=== PATIENT | female | born 1980 | race Caucasian/White ===

== ENCOUNTER 2021-05-03 16:45 | Inpatient (IN) | payer BC ==
[~2021-05-03] VITALS: Ht 165.1 cm; Wt 114.7 kg
[2021-05-03 18:14] LABS: BASO # 0.1 x10^3/uL (0.0-0.2); BASO % 1 % (0-3); EOS # 0.2 x10^3/uL (0.0-0.7); EOS % 3 % (0-3); HEMATOCRIT 40.2 % (36.0-47.0); HEMOGLOBIN 13.1 g/dL (12.0-15.5); LYMPH # 2.1 x10^3/uL (1.0-4.8); LYMPH % 23 % (24-48); MEAN CORPUSCULAR HEMOGLOBIN 24 pg (25-35); MEAN CORPUSCULAR HGB CONC 33 g/dL (31-37); MEAN CORPUSCULAR VOLUME 73 fL (79-100); MONO # 0.3 x10^3/uL (0.0-1.1); MONO % 4 % (0-9); NEUT # 6.3 x10^3/uL (1.8-7.7); NEUT % 70 % (31-73); PLATELET COUNT 255 x10^3/uL (140-400); RED BLOOD COUNT 5.48 x10^6/uL (3.50-5.40); RED CELL DISTRIBUTION WIDTH 14.7 % (11.5-14.5)
[2021-05-03 18:25] LABS: BILIRUBIN,URINE NEGATIVE (NEG); CLARITY,URINE CLEAR; COLOR,URINE YELLOW; NITRITE,URINE NEGATIVE (NEG); PROTEIN,URINE NEGATIVE (NEG-TRACE); UROBILINOGEN,URINE 0.2 mg/dL (0.2 mg/dL)
[2021-05-03 18:27] LABS: BACTERIA,URINE FEW /HPF (0-FEW); RBC,URINE 0 /HPF (0-2); WBC,URINE 0 /HPF (0-4)
[2021-05-03 18:29] LABS: ACETAMIN < 2 mcg/ml (10-30); CALCIUM 8.8 mg/dL (8.5-10.1); CREATININE 0.7 mg/dL (0.6-1.0); ETHANOL < 10 mg/dL (0-10); GFR 92.7; POTASSIUM 4.2 mmol/L (3.5-5.1); SALIC 0.6 mg/dL (2.8-20.0)
[2021-05-03 18:31] LABS: AMPHETAMINE/METHAMPHETAMINE NEG (NEG); BARBITURATES NEG (NEG); BENZODIAZEPINES NEG (NEG); CANNABINOIDS NEG (NEG); COCAINE NEG (NEG); METHADONE NEG (NEG); OPIATES NEG (NEG); PHENCYCLIDINE NEG (NEG)
[2021-05-03 18:35] LABS: ALBUMIN 3.4 g/dL (3.4-5.0); ALBUMIN/GLOBULIN RATIO 0.7 (1.0-1.7); TOTAL BILIRUBIN 0.3 mg/dL (0.2-1.0); TOTAL PROTEIN 8.4 g/dL (6.4-8.2)
--- NOTE | 2021-05-03 18:49 | EKG ---
[facility] [address] [place] [address] Test Date: 2021-05-03 Test Time: 17:35:40 Pat Name: TASH MAYES Department: Room: Gender: F Baker Chef: : 1980 Requested By: NU LINARES Order Number: [id number] Reading MD: Hemanth Huerta Measurements Intervals [place] Rate: 95 P: 38 GA: 152 QRS: 11 QRSD: 86 T: 11 QT: 336 QTc: 425 Interpretive Statements SINUS RHYTHM NORMAL ECG RI6.02 No previous ECG available for comparison Electronically Signed On 05-05-2021 8:32:47 CABLE RESPOOLER by Hemanth Huerta
[2021-05-03 19:14] LABS: VAL ACID 34 mcg/mL (50-100)
[2021-05-03] MEDS ORDERED: ACETAMINOPHEN 325 MG TABLET. PO PRN (20:45)
[2021-05-03] MEDS ORDERED: ONDANSETRON PF 4 MG/2 ML VIAL. IVP PRN (20:45)
--- NOTE | 2021-05-03 20:56 | PHYS DOC ---
Past Medical History Past Medical History: Depression, Diabetes-Type II (borderline), Schizophrenia Additional Past Medical Histor: BORDERLINE DIABETES "SMALL SCHIZOPHRENIA", PTSD, MANIC DEPRESSIVE (ALFIE MORELAND Adrian HOME THERAPY CLINICIAN) Past Surgical History: Other Additional Past Surgical Histo: PARTIAL HYSTERECTOMY (ALFIE MORELAND HOME THERAPY CLINICIAN) Smoking Status: Current Every Day Smoker Additional Information: VAPES Alcohol Use: Rarely (ALFIE MORELAND HOME THERAPY CLINICIAN) General Adult EDM: Chief Complaint: SUICDAL IDEATION HPI: HPI: Patient is a 41 year old female with history of manic depressive behavior, borderline diabetes, schizophrenia, PTSD, who presents the ED today to be evaluated for suicidal attempt. Patient states she recently got and has a new boyfriends. She states yesterday she went to her parent's house in [facility], she got into a verbal altercation with the mother, she decided to take her two children from her parents to [place]. She states was driving back to [place] when she realized they had forgotten some stuff. She went back to the parent's house, when she got to their her daughter jumped out of the vehicle, her son also came out of the vehicle and went into the grandparents house and they both refused go with their mother to [place]. Patient states she drove to [place], made herself 2 alcoholic drinks around 5:30 PM. She states later last night she took half a handful of 5 mg of Lexapro as well as 4 tablets of 250 mg of Depakote. She states her intention was to ki ll herself. She states she slept until 230am when woke up and did FaceTime with her boyfriend who was at work then slept until 5:30 am when the boyfriend came back. She states she has continued to have suicidal thoughts. She states she does not have a plan. She is requesting help. Patient reports previous history of suicidal ideations. Patient has no other symptoms. (ALFIE MORELAND HOME THERAPY CLINICIAN) Review of Systems: Review of Systems: Constitutional: Denies fever or chills. [] Eyes: Denies change in visual acuity. [] HENT: Denies nasal congestion or sore throat. [] Respiratory: Denies cough or shortness of breath. [] Cardiovascular: Denies chest pain or edema. [] GI: Denies abdominal pain, nausea, vomiting, bloody stools or diarrhea. [] : Denies dysuria. [] Musculoskeletal: Denies back pain or joint pain. [] Integument: Denies rash. [] Neurologic: Denies headache, focal weakness or sensory changes. [] Psychiatric: Reports suicide attempt (ALFIE MORELAND M HOME THERAPY CLINICIAN) Heart Score: C/O Chest Pain: N/A Risk Factors: Risk Factors: DM, Current or recent (<one month) smoker, HTN, HLP, family history of CAD, obesity. Risk Scores: Score 0 - 3: 2.5% MACE over next 6 weeks - Discharge Home Score 4 - 6: 20.3% MACE over next 6 weeks - Admit for Clinical Observation Score 7 - 10: 72.7% MACE over next 6 weeks - Early Invasive Strategies (ALFIE MORELAND M HOME THERAPY CLINICIAN) Allergies: Allergies: Allergies Coded Allergies Type Severity Reaction Last Updated Verified No Known Drug Allergies 05/03/21 No (ALFIE MORELAND M HOME THERAPY CLINICIAN) Physical Exam: PE: Constitutional: Well developed, well nourished, no acute distress, non-toxic appearance. [] HENT: Normocephalic, atraumatic, bilateral external ears normal, oropharynx moist, no oral exudates, nose normal. [] Eyes: PERRLA, EOMI, conjunctiva normal, no discharge. [] Neck: Normal range of motion, no tenderness, supple, no stridor. [] Cardiovascular: Tachycardic Lungs & Thorax: Bilateral breath sounds clear to auscultation [] Abdomen: Bowel sounds normal, soft, no tenderness, no masses, no pulsatile masses. [] Skin: Warm, dry, no erythema, no rash. [] Back: No tenderness, no CVA tenderness. [] Extremities: No tenderness, no cyanosis, no clubbing, ROM intact, no edema. [] Neurologic: Alert and oriented X 3, normal motor function, normal sensory function, no focal deficits noted. [] Psychologic: Flat affect, depressed mood (ALFIE MORELAND M HOME THERAPY CLINICIAN) Current Patient Data: Labs: Laboratory Tests Test 05/03/21 17:58 White Blood Count 9.0 x10^3/uL (4.0-11.0) Red Blood Count 5.48 x10^6/uL (3.50-5.40) H Hemoglobin 13.1 g/dL (12.0-15.5) Hematocrit 40.2 % (36.0-47.0) Mean Corpuscular Volume 73 fL (79-100) L Mean Corpuscular Hemoglobin 24 pg (25-35) L Mean Corpuscular Hemoglobin Concent 33 g/dL (31-37) Red Cell Distribution Width 14.7 % (11.5-14.5) H Platelet Count 255 x10^3/uL (140-400) Neutrophils (%) (Auto) 70 % (31-73) Lymphocytes (%) (Auto) 23 % (24-48) L Monocytes (%) (Auto) 4 % (0-9) Eosinophils (%) (Auto) 3 % (0-3) Basophils (%) (Auto) 1 % (0-3) Neutrophils # (Auto) 6.3 x10^3/uL (1.8-7.7) Lymphocytes # (Auto) 2.1 x10^3/uL (1.0-4.8) Monocytes # (Auto) 0.3 x10^3/uL (0.0-1.1) Eosinophils # (Auto) 0.2 x10^3/uL (0.0-0.7) Basophils # (Auto) 0.1 x10^3/uL (0.0-0.2) Urine Collection Type Unknown Urine Color Yellow Urine Clarity Clear Urine pH 7.0 (<5.0-8.0) Urine Specific [place] 1.020 (1.000-1.030) Urine Protein Negative mg/dL (NEG-TRACE) Urine Glucose (UA) Negative mg/dL (NEG) Urine Ketones (Stick) Negative mg/dL (NEG) Urine Blood Negative (NEG) Urine Nitrite Negative (NEG) Urine Bilirubin Negative (NEG) Urine Urobilinogen Dipstick 0.2 mg/dL (0.2 mg/dL) Urine Leukocyte Esterase Negative (NEG) Urine RBC 0 /HPF (0-2) Urine WBC 0 /HPF (0-4) Urine Squamous Epithelial Cells Occ /LPF Urine Bacteria Few /HPF (0-FEW) Urine Mucus Slight /LPF Sodium Level 136 mmol/L (136-145) Potassium Level 4.2 mmol/L (3.5-5.1) Chloride Level 100 mmol/L (98-107) Carbon Dioxide Level 27 mmol/L (21-32) Anion Gap 9 (6-14) Blood Urea Nitrogen 5 mg/dL (7-20) L Creatinine 0.7 mg/dL (0.6-1.0) Estimated GFR (Cockcroft-Gault) 92.7 BUN/Creatinine Ratio 7 (6-20) Glucose Level 177 mg/dL (70-99) H Calcium Level 8.8 mg/dL (8.5-10.1) Magnesium Level 2.0 mg/dL (1.8-2.4) Total Bilirubin 0.3 mg/dL (0.2-1.0) Aspartate Amino Transferase (AST) 23 U/L (15-37) Alanine Aminotransferase (ALT) 43 U/L (14-59) Alkaline Phosphatase 92 U/L (46-116) Total Protein 8.4 g/dL (6.4-8.2) H Albumin 3.4 g/dL (3.4-5.0) Albumin/Globulin Ratio 0.7 (1.0-1.7) L Salicylates Level 0.6 mg/dL (2.8-20.0) L Salicylate Last Dose Date Salicylate Last Dose Time Urine Opiates Screen Neg (NEG) Urine Methadone Screen Neg (NEG) Acetaminophen Level < 2 mcg/ml (10-30) L Acetaminophen Last Dose Date Acetaminophen Last Dose Time Urine Barbiturates Neg (NEG) Valproic Acid Level 34 mcg/mL (50-100) L Valproic Acid Last Dose Date 05/02/21 Valproic Acid Last Dose Time 2100 Urine Phencyclidine Screen Neg (NEG) Urine Amphetamine/Methamphetamine Neg (NEG) Urine Benzodiazepines Screen Neg (NEG) Urine Cocaine Screen Neg (NEG) Urine Cannabinoids Screen Neg (NEG) Ethyl Alcohol Level < 10 mg/dL (0-10) Urine Ethyl Alcohol Neg (NEG) Laboratory Tests 05/03/21 17:58 Laboratory Tests 05/03/21 17:58 Vital Signs: Vital Signs Date Time Temp Pulse Resp B/P (MAP) Pulse Ox O2 Delivery O2 Flow Rate FiO2 05/03/21 20:10 85 22 149/84 (105) 93 05/03/21 18:10 Room Air 05/03/21 16:50 98.3 98.3 (ALFIE MORELAND APRN) EKG: EK interpreted by Dr. Coyne sinus rhythm heart rate 95, QRS 86, QT 336, QTc 425. No STEMI [] (ALFIE MORELAND APRN) Radiology/Procedures: Radiology/Procedures: [] (ALFIE MORELAND APRN) Course & Med Decision Making: Course & Med Decision Making Pertinent Labs and Imaging studies reviewed. (See chart for details) This is a 41-year-old female patient presented to the ED today to be evaluated for suicide attempt, she took half a handful of 5 mg Lexapro last night as well as 4 tablets of Depakote 250 mg. She also had 2 alcoholic drinks. CBC, CMP, UDS negative for any acute findings. Depakote level 34. EKG is negative. Spoke with poison control. They requested patient to be monitored for 11 hours considering we do not have an exact time she took the pills. Patient is on1:[address] Schafer who accepted patient for admission. (ALFIE MORELAND APRN) Course & Med Decision Making Patients Care and treatment plan provided by ER Nurse Practitioner. I was available for consult. Patient's chart reviewed. (JUDAH VIRK DO) Dragon Disclaimer: Dragon Disclaimer: This electronic medical record was generated, in whole or in part, using a voice recognition dictation system. (ALFIE MORELAND APRN) Departure Departure Impression: Primary Impression: Suicidal ideation Additional Impression: Overdose Qualified Codes: T50.902A - Poisoning by unspecified drugs, medicaments and biological substances, intentional self-harm, initial encounter Disposition: ADMITTED INPATIENT Condition: STABLE Referrals: NO PCP (PCP) ALFIE MORELAND APRN May 03, 2021 20:56 JUDAH VIRK DO May 04, 2021 03:42
[2021-05-03 21:00] VITALS: BP 148/96
[2021-05-03] MEDS ORDERED: ONDANSETRON ODT 4 MG TAB.RAPDIS. PO PRN (22:30)
[2021-05-03 22:31] VITALS: BP 126/63
[2021-05-03] MEDS ORDERED: ESOM20CA PO (23:40)
[2021-05-03] MEDS ORDERED: CALC650T7 PO (23:40)
[2021-05-03] MEDS ORDERED: CRAN1CAP12 PO (23:40)
[2021-05-03] MEDS ORDERED: FEXO1TAB31 PO (23:40)
[2021-05-03] MEDS ORDERED: DIVA500T17 PO (23:40)
[2021-05-03] MEDS ORDERED: ESCITALOPRAM OX10 MG PO (23:40)
[2021-05-03] MEDS ORDERED: MULT-154 PO (23:40)
[2021-05-04 02:11] VITALS: BP 134/88
--- NOTE | 2021-05-04 05:27 | EKG ---
[facility] [address] [place] [address] Test Date: 2021-05-03 Test Time: 20:50:56 Pat Name: TASH MAYES Department: Room: [facility] Gender: F Clinical Nursing Coordinator: : 1980 Requested By: ALFIE MORELAND Order Number: [id number] Reading MD: Hemanth Huerta Measurements Intervals [place] Rate: 93 P: 17 MN: 160 QRS: 0 QRSD: 86 T: 12 QT: 354 QTc: 443 Interpretive Statements SINUS RHYTHM LEFTWARD AXIS Electronically Signed On 05-05-2021 8:31:52 BIODIESEL ENGINEERING MANAGER by Hemanth Huerta
[2021-05-04 06:43] LABS: BASO % 0 % (0-3); EOS # 0.2 x10^3/uL (0.0-0.7); EOS % 3 % (0-3); HEMATOCRIT 38.3 % (36.0-47.0); HEMOGLOBIN 12.1 g/dL (12.0-15.5); LYMPH # 4.1 x10^3/uL (1.0-4.8); LYMPH % 44 % (24-48); MEAN CORPUSCULAR HEMOGLOBIN 24 pg (25-35); MEAN CORPUSCULAR HGB CONC 32 g/dL (31-37); MEAN CORPUSCULAR VOLUME 74 fL (79-100); MONO # 0.6 x10^3/uL (0.0-1.1); MONO % 6 % (0-9); NEUT # 4.4 x10^3/uL (1.8-7.7); NEUT % 47 % (31-73); PLATELET COUNT 237 x10^3/uL (140-400); RED BLOOD COUNT 5.16 x10^6/uL (3.50-5.40); WHITE BLOOD COUNT 9.4 x10^3/uL (4.0-11.0)
[2021-05-04 06:56] LABS: ALBUMIN 3.2 g/dL (3.4-5.0); ALBUMIN/GLOBULIN RATIO 0.7 (1.0-1.7); CALCIUM 8.8 mg/dL (8.5-10.1); CREATININE 0.6 mg/dL (0.6-1.0); GFR 110.7; POTASSIUM 3.8 mmol/L (3.5-5.1); TOTAL BILIRUBIN 0.3 mg/dL (0.2-1.0); TOTAL PROTEIN 7.9 g/dL (6.4-8.2)
[2021-05-04 07:28] VITALS: BP 168/101
[2021-05-04] MEDS ORDERED: NICOTINE 21MG PATCH. TD PRN (08:30)
[2021-05-04] MEDS: PANTOPRAZOLE 40 MG TABLET.DR. PO SCH (08:41)
[2021-05-04] MEDS ORDERED: CALCIUM CARBONATE 500 MG TAB.CHEW PO PRN (08:45)
[2021-05-04 11:00] VITALS: BP 151/82
--- NOTE | 2021-05-04 15:23 | NUR ---
SS following for discharge planning. SS reviewed pt chart and discussed with pt RN. Pt is from home and is currently on room air. Pt admitted for suicidal ideation and overdose. Request for PAT consult received. Referral for PAT team made for assessment and recommendations. SS will continue to follow for discharge planning.
[2021-05-04 15:30] VITALS: BP 156/96
--- NOTE | 2021-05-04 16:16 | PDOC1 ---
History and Physical Date of Admission Date of Admission DATE: 05/04/21 TIME: 16:10 Source Source: Chart review, Patient History of Present Illness History of Present Illness Tiffany is a 41 year old female admti after a suicide attept last night. She took a couple alcohol drinks, then most of her lexapro and some Depakote tabs, maybe 4 or 6 depakote only, and level was not elevated in the ER She has a history of manic depressive behavior, borderline diabetes, schizophrenia, PTSD, and has mult lift changes recently, Recently and has a new partner. Has moved to from [place], was in a fight with her mom yesterday in [place], and her kids refused to stay with her and she says she titi spiraled down from there. She states her intention was to kill herself when she took her pills,but she has no current plan and feels better and her anxiety is better. . She is requesting help, and does report hearing some voices in her head. Past Medical History Cardiovascular: HTN Psych: Anxiety, Addictions, Schizophrenia (mild) Past Surgical History Past Surgical History: No pertinent history Family History Family History: Family History Unknown, Adopted Social History Smoke: 1 pack per day ALCOHOL: social Drugs: None Current Medications Current Medications Current Medications Ondansetron HCl (Zofran) 4 mg PRN Q8HRS PRN IVP NAUSEA/VOMITING; Start 05/03/21 at 20:45; Stop 05/04/21 at 20:44; Status Cancel Acetaminophen (Tylenol) 650 mg PRN Q4HRS PRN PO FEVER > 100.3'F Last administered on 05/04/21at 08:39; Start 05/03/21 at 20:45; Stop 05/04/21 at 20:44 Ondansetron HCl (Zofran Odt) 4 mg PRN Q8HRS PRN PO NAUSEA/VOMITING; Start 05/03/21 at 22:30 Nicotine (Nicoderm Cq 21mg) 1 patch PRN DAILY PRN TD SMOKING CESSATION Last administered on 05/04/21at 08:55; Start 05/04/21 at 08:30 Lorazepam (Ativan) 1 mg PRN Q6HRS PRN PO ANXIETY / AGITATION; Start 05/04/21 at 08:30 Calcium Carbonate/ Glycine (Tums) 750 mg PRN AFTMEALHC PRN PO HEARTBURN / GAS; Start 05/04/21 at 08:45 Pantoprazole Sodium (Protonix) 40 mg DAILYAC PO Last administered on 05/04/21at 08:41; Start 05/04/21 at 10:30 Active Scripts Active Reported Calcium Carbonate 650 Mg Tablet 750 Mg PO PRN QID PRN Nexium Capsule (Esomeprazole Magnesium) 20 Mg Capsule.dr 1 Cap PO DAILY Debo-D 24 Hour Tablet (Fexofenadine/Pseudoephedrine) 1 Each Tab.er.24h 1 Tab PO DAILY 30 Days Azo Cranberry Softgel (Cranberry Extract/Vit C) 1 Each Capsule 1 Cap PO DAILY 30 Days One-A-Day Essential (Multivitamin) 1 Each Tablet 1 Tab PO DAILY 30 Days Divalproex Sodium Er (Divalproex Sodium) 500 Mg Tab.er.24h 1 Tab PO QHS Escitalopram Oxalate 10 Mg Tablet 15 Mg PO DAILY PRN Allergies Allergies: Coded Allergies: No Known Drug Allergies (Unverified , 05/03/21) ROS General: No: Chills, Night Sweats, Fatigue, Malaise, Appetite, Other PSYCHOLOGICAL ROS: YES: Anxiety, Hostility, Irritablity, Obsessive thoughts, Sleep disturbances, Suicidal ideation; No: Behavioral Disorder, Concentration difficultie, Decreased libido, Depression, Disorientation, Hallucinations, Memory difficulties, Mood Swings, Physical abuse, Sexual abuse, Other Eyes: No Blurry vision, No Decreased vision, No Double vision, No Dry eyes, No Excessive tearing, No Eye Pain, No Itchy Eyes, No Loss of vision, No Photophobia, No Scotomata, No Uses contacts, No Uses glasses, No Other Respiratory: No: Cough, Hemoptysis, Orthopnea, Pleuritic Pain, Shortness of breath, SOB with excertion, Sputum Changes, Stridor, Tachypnea, Wheezing, Other Cardiovascular: No Chest Pain, No Palpitations, No Orthopnea, No Paroxysmal Noc. Dyspnea, No Edema, No Lt Headedness, No Other Gastrointestinal: No Nausea, No Vomiting, No Abdominal Pain, No Diarrhea, No Constipation, No Melena, No Hematochezia, No Other Genitourinary: No Dysuria, No Frequency, No Incontinence, No Hematuria, No Retention, No Discharge, No Urgency, No Pain, No Flank Pain, No Other, No , No , No , No , No , No , No Musculoskeletal: No Gait Disturbance, No Joint Pain, No Joint Stiffness, No Joint Swelling, No Muscle Pain, No Muscular Weakness, No Pain In:, No Swelling In:, No Other Neurological: No Behavorial Changes, No Bowel/Bladder ControlChng, No Confusion, No Dizziness, No Gait Disturbance, No Headaches, No Impaired Coord/balance, No Memory Loss, No Numbness/Tingling, No Seizures, No Speech Problems, No Tremors, No Visual Changes, No Weakness, No Other Skin: No Dry Skin, No Eczema, No Hair Changes, No Lumps, No Mole Changes, No Mottling, No Nail Changes, No Pruritus, No Rash, No Skin Lesion Changes, No Other, No Acne Physical Exam General: Alert, Oriented X3, No acute distress HEENT: Atraumatic, EOMI Lungs: Clear to auscultation, Normal air movement Heart: no murmurs Abdomen: Normal bowel sounds, Soft Rectal Exam: not examined Extremities: No cyanosis, No edema Skin: No breakdown Neuro: Normal speech, Sensation intact Psych/Mental Status: Mental status NL, Mood NL Vitals Vitals Vital Signs Date Time Temp Pulse Resp B/P (MAP) Pulse Ox O2 Delivery O2 Flow Rate FiO2 05/04/21 15:30 98.0 78 18 156/96 (116) 100 Room Air 98.0 Labs Labs Laboratory Tests Test 05/03/21 17:30 05/03/21 17:58 05/03/21 18:30 05/04/21 05:25 Coronavirus (COVID-19)(PCR) Not detected (NOT DETECTD) White Blood Count 9.0 x10^3/uL (4.0-11.0) 9.4 x10^3/uL (4.0-11.0) Red Blood Count 5.48 x10^6/uL (3.50-5.40) 5.16 x10^6/uL (3.50-5.40) Hemoglobin 13.1 g/dL (12.0-15.5) 12.1 g/dL (12.0-15.5) Hematocrit 40.2 % (36.0-47.0) 38.3 % (36.0-47.0) Mean Corpuscular Volume 73 fL (79-100) 74 fL (79-100) Mean Corpuscular Hemoglobin 24 pg (25-35) 24 pg (25-35) Mean Corpuscular Hemoglobin Concent 33 g/dL (31-37) 32 g/dL (31-37) Red Cell Distribution Width 14.7 % (11.5-14.5) 15.0 % (11.5-14.5) Platelet Count 255 x10^3/uL (140-400) 237 x10^3/uL (140-400) Neutrophils (%) (Auto) 70 % (31-73) 47 % (31-73) Lymphocytes (%) (Auto) 23 % (24-48) 44 % (24-48) Monocytes (%) (Auto) 4 % (0-9) 6 % (0-9) Eosinophils (%) (Auto) 3 % (0-3) 3 % (0-3) Basophils (%) (Auto) 1 % (0-3) 0 % (0-3) Neutrophils # (Auto) 6.3 x10^3/uL (1.8-7.7) 4.4 x10^3/uL (1.8-7.7) Lymphocytes # (Auto) 2.1 x10^3/uL (1.0-4.8) 4.1 x10^3/uL (1.0-4.8) Monocytes # (Auto) 0.3 x10^3/uL (0.0-1.1) 0.6 x10^3/uL (0.0-1.1) Eosinophils # (Auto) 0.2 x10^3/uL (0.0-0.7) 0.2 x10^3/uL (0.0-0.7) Basophils # (Auto) 0.1 x10^3/uL (0.0-0.2) 0.0 x10^3/uL (0.0-0.2) Urine Collection Type Unknown Urine Color Yellow Urine Clarity Clear Urine pH 7.0 (<5.0-8.0) Urine Specific [place] 1.020 (1.000-1.030) Urine Protein Negative mg/dL (NEG-TRACE) Urine Glucose (UA) Negative mg/dL (NEG) Urine Ketones (Stick) Negative mg/dL (NEG) Urine Blood Negative (NEG) Urine Nitrite Negative (NEG) Urine Bilirubin Negative (NEG) Urine Urobilinogen Dipstick 0.2 mg/dL (0.2 mg/dL) Urine Leukocyte Esterase Negative (NEG) Urine RBC 0 /HPF (0-2) Urine WBC 0 /HPF (0-4) Urine Squamous Epithelial Cells Occ /LPF Urine Bacteria Few /HPF (0-FEW) Urine Mucus Slight /LPF Sodium Level 136 mmol/L (136-145) 136 mmol/L (136-145) Potassium Level 4.2 mmol/L (3.5-5.1) 3.8 mmol/L (3.5-5.1) Chloride Level 100 mmol/L (98-107) 100 mmol/L (98-107) Carbon Dioxide Level 27 mmol/L (21-32) 27 mmol/L (21-32) Anion Gap 9 (6-14) 9 (6-14) Blood Urea Nitrogen 5 mg/dL (7-20) 6 mg/dL (7-20) Creatinine 0.7 mg/dL (0.6-1.0) 0.6 mg/dL (0.6-1.0) Estimated GFR (Cockcroft-Gault) 92.7 110.7 BUN/Creatinine Ratio 7 (6-20) 10 (6-20) Glucose Level 177 mg/dL (70-99) 94 mg/dL (70-99) Calcium Level 8.8 mg/dL (8.5-10.1) 8.8 mg/dL (8.5-10.1) Magnesium Level 2.0 mg/dL (1.8-2.4) Total Bilirubin 0.3 mg/dL (0.2-1.0) 0.3 mg/dL (0.2-1.0) Aspartate Amino Transf (AST/SGOT) 23 U/L (15-37) 17 U/L (15-37) Alanine Aminotransferase (ALT/SGPT) 43 U/L (14-59) 37 U/L (14-59) Alkaline Phosphatase 92 U/L (46-116) 88 U/L (46-116) Total Protein 8.4 g/dL (6.4-8.2) 7.9 g/dL (6.4-8.2) Albumin 3.4 g/dL (3.4-5.0) 3.2 g/dL (3.4-5.0) Albumin/Globulin Ratio 0.7 (1.0-1.7) 0.7 (1.0-1.7) Salicylates Level 0.6 mg/dL (2.8-20.0) Salicylate Last Dose Date Salicylate Last Dose Time Urine Opiates Screen Neg (NEG) Urine Methadone Screen Neg (NEG) Acetaminophen Level < 2 mcg/ml (10-30) Acetaminophen Last Dose Date Acetaminophen Last Dose Time Urine Barbiturates Neg (NEG) Valproic Acid (Depakene) Level 34 mcg/mL (50-100) Valproic Acid Last Dose Date 05/02/21 Valproic Acid Last Dose Time 2100 Urine Phencyclidine Screen Neg (NEG) Urine Amphetamine/Methamphetamine Neg (NEG) Urine Benzodiazepines Screen Neg (NEG) Urine Cocaine Screen Neg (NEG) Urine Cannabinoids Screen Neg (NEG) Ethyl Alcohol Level < 10 mg/dL (0-10) Urine Ethyl Alcohol Neg (NEG) SARS-CoV-2 Antigen (Rapid) Negative (NEGATIVE) Laboratory Tests Test 05/03/21 17:30 05/03/21 17:58 05/03/21 18:30 05/04/21 05:25 Coronavirus (COVID-19)(PCR) Not detected (NOT DETECTD) White Blood Count 9.0 x10^3/uL (4.0-11.0) 9.4 x10^3/uL (4.0-11.0) Red Blood Count 5.48 x10^6/uL (3.50-5.40) 5.16 x10^6/uL (3.50-5.40) Hemoglobin 13.1 g/dL (12.0-15.5) 12.1 g/dL (12.0-15.5) Hematocrit 40.2 % (36.0-47.0) 38.3 % (36.0-47.0) Mean Corpuscular Volume 73 fL (79-100) 74 fL (79-100) Mean Corpuscular Hemoglobin 24 pg (25-35) 24 pg (25-35) Mean Corpuscular Hemoglobin Concent 33 g/dL (31-37) 32 g/dL (31-37) Red Cell Distribution Width 14.7 % (11.5-14.5) 15.0 % (11.5-14.5) Platelet Count 255 x10^3/uL (140-400) 237 x10^3/uL (140-400) Neutrophils (%) (Auto) 70 % (31-73) 47 % (31-73) Lymphocytes (%) (Auto) 23 % (24-48) 44 % (24-48) Monocytes (%) (Auto) 4 % (0-9) 6 % (0-9) Eosinophils (%) (Auto) 3 % (0-3) 3 % (0-3) Basophils (%) (Auto) 1 % (0-3) 0 % (0-3) Neutrophils # (Auto) 6.3 x10^3/uL (1.8-7.7) 4.4 x10^3/uL (1.8-7.7) Lymphocytes # (Auto) 2.1 x10^3/uL (1.0-4.8) 4.1 x10^3/uL (1.0-4.8) Monocytes # (Auto) 0.3 x10^3/uL (0.0-1.1) 0.6 x10^3/uL (0.0-1.1) Eosinophils # (Auto) 0.2 x10^3/uL (0.0-0.7) 0.2 x10^3/uL (0.0-0.7) Basophils # (Auto) 0.1 x10^3/uL (0.0-0.2) 0.0 x10^3/uL (0.0-0.2) Urine Collection Type Unknown Urine Color Yellow Urine Clarity Clear Urine pH 7.0 (<5.0-8.0) Urine Specific [place] 1.020 (1.000-1.030) Urine Protein Negative mg/dL (NEG-TRACE) Urine Glucose (UA) Negative mg/dL (NEG) Urine Ketones (Stick) Negative mg/dL (NEG) Urine Blood Negative (NEG) Urine Nitrite Negative (NEG) Urine Bilirubin Negative (NEG) Urine Urobilinogen Dipstick 0.2 mg/dL (0.2 mg/dL) Urine Leukocyte Esterase Negative (NEG) Urine RBC 0 /HPF (0-2) Urine WBC 0 /HPF (0-4) Urine Squamous Epithelial Cells Occ /LPF Urine Bacteria Few /HPF (0-FEW) Urine Mucus Slight /LPF Sodium Level 136 mmol/L (136-145) 136 mmol/L (136-145) Potassium Level 4.2 mmol/L (3.5-5.1) 3.8 mmol/L (3.5-5.1) Chloride Level 100 mmol/L (98-107) 100 mmol/L (98-107) Carbon Dioxide Level 27 mmol/L (21-32) 27 mmol/L (21-32) Anion Gap 9 (6-14) 9 (6-14) Blood Urea Nitrogen 5 mg/dL (7-20) 6 mg/dL (7-20) Creatinine 0.7 mg/dL (0.6-1.0) 0.6 mg/dL (0.6-1.0) Estimated GFR (Cockcroft-Gault) 92.7 110.7 BUN/Creatinine Ratio 7 (6-20) 10 (6-20) Glucose Level 177 mg/dL (70-99) 94 mg/dL (70-99) Calcium Level 8.8 mg/dL (8.5-10.1) 8.8 mg/dL (8.5-10.1) Magnesium Level 2.0 mg/dL (1.8-2.4) Total Bilirubin 0.3 mg/dL (0.2-1.0) 0.3 mg/dL (0.2-1.0) Aspartate Amino Transf (AST/SGOT) 23 U/L (15-37) 17 U/L (15-37) Alanine Aminotransferase (ALT/SGPT) 43 U/L (14-59) 37 U/L (14-59) Alkaline Phosphatase 92 U/L (46-116) 88 U/L (46-116) Total Protein 8.4 g/dL (6.4-8.2) 7.9 g/dL (6.4-8.2) Albumin 3.4 g/dL (3.4-5.0) 3.2 g/dL (3.4-5.0) Albumin/Globulin Ratio 0.7 (1.0-1.7) 0.7 (1.0-1.7) Salicylates Level 0.6 mg/dL (2.8-20.0) Salicylate Last Dose Date Salicylate Last Dose Time Urine Opiates Screen Neg (NEG) Urine Methadone Screen Neg (NEG) Acetaminophen Level < 2 mcg/ml (10-30) Acetaminophen Last Dose Date Acetaminophen Last Dose Time Urine Barbiturates Neg (NEG) Valproic Acid (Depakene) Level 34 mcg/mL (50-100) Valproic Acid Last Dose Date 05/02/21 Valproic Acid Last Dose Time 2100 Urine Phencyclidine Screen Neg (NEG) Urine Amphetamine/Methamphetamine Neg (NEG) Urine Benzodiazepines Screen Neg (NEG) Urine Cocaine Screen Neg (NEG) Urine Cannabinoids Screen Neg (NEG) Ethyl Alcohol Level < 10 mg/dL (0-10) Urine Ethyl Alcohol Neg (NEG) SARS-CoV-2 Antigen (Rapid) Negative (NEGATIVE) VTE Prophylaxis Ordered VTE Prophylaxis Devices: Yes VTE Pharmacological Prophylaxi: No Assessment/Plan Assessment/Plan major depression anxiety, anxiety disorder suicide attempt, no current plant, feels imrpoved obese, BMI 42 admit for Psych eval, PAT team will hold lexapro and depakote a day then restart Justifications for Admission Other Justification TERRY SHAHID MD May 04, 2021 16:16
[2021-05-04 19:00] VITALS: BP 149/97
[2021-05-04] MEDS ORDERED: ACETAMINOPHEN 325 MG TABLET. PO PRN (21:45)
[2021-05-04 23:00] VITALS: BP 134/73
[2021-05-05 03:00] VITALS: BP 113/58
--- NOTE | 2021-05-05 03:02 | NUR ---
Patient requesting for boyfriend to be able to spend the rest of the morning in patient's room until anticipated discharge; request denied per nursing turf and grounds supervisor.
[2021-05-05 07:00] VITALS: BP 106/60
[2021-05-05] MEDS: PANTOPRAZOLE 40 MG TABLET.DR. PO SCH (08:47)
--- NOTE | 2021-05-05 10:07 | NUR ---
pt was discharged home with self care, she was given outpt resources for mental health places and advised to find a PCP locally. she was walked out to the main entrance by Shannon LEE. Michele Stein RN
--- NOTE | 2021-05-05 12:20 | PDOC3 ---
Discharge Summary Visit Information Date of Admission: May 03, 2021 Date of Discharge: May 05, 2021 Final Diagnosis major depression anxiety, anxiety disorder suicide attempt, no current plant, feels imrpoved obese, BMI 42 admit for Psych eval, PAT team Brief Hospital Course Allergies Allergies Coded Allergies Type Severity Reaction Last Updated Verified No Known Drug Allergies 05/03/21 No Vital Signs Vital Signs Date Time Temp Pulse Resp B/P (MAP) Pulse Ox O2 Delivery O2 Flow Rate FiO2 05/05/21 08:02 Room Air 05/05/21 07:00 98.1 87 20 106/60 (75) 97 98.1 Lab Results Laboratory Tests Test 05/03/21 17:30 05/03/21 17:58 05/03/21 18:30 05/04/21 05:25 Coronavirus (COVID-19)(PCR) Not detected (NOT DETECTD) White Blood Count 9.0 x10^3/uL (4.0-11.0) 9.4 x10^3/uL (4.0-11.0) Red Blood Count 5.48 x10^6/uL (3.50-5.40) 5.16 x10^6/uL (3.50-5.40) Hemoglobin 13.1 g/dL (12.0-15.5) 12.1 g/dL (12.0-15.5) Hematocrit 40.2 % (36.0-47.0) 38.3 % (36.0-47.0) Mean Corpuscular Volume 73 fL (79-100) 74 fL (79-100) Mean Corpuscular Hemoglobin 24 pg (25-35) 24 pg (25-35) Mean Corpuscular Hemoglobin Concent 33 g/dL (31-37) 32 g/dL (31-37) Red Cell Distribution Width 14.7 % (11.5-14.5) 15.0 % (11.5-14.5) Platelet Count 255 x10^3/uL (140-400) 237 x10^3/uL (140-400) Neutrophils (%) (Auto) 70 % (31-73) 47 % (31-73) Lymphocytes (%) (Auto) 23 % (24-48) 44 % (24-48) Monocytes (%) (Auto) 4 % (0-9) 6 % (0-9) Eosinophils (%) (Auto) 3 % (0-3) 3 % (0-3) Basophils (%) (Auto) 1 % (0-3) 0 % (0-3) Neutrophils # (Auto) 6.3 x10^3/uL (1.8-7.7) 4.4 x10^3/uL (1.8-7.7) Lymphocytes # (Auto) 2.1 x10^3/uL (1.0-4.8) 4.1 x10^3/uL (1.0-4.8) Monocytes # (Auto) 0.3 x10^3/uL (0.0-1.1) 0.6 x10^3/uL (0.0-1.1) Eosinophils # (Auto) 0.2 x10^3/uL (0.0-0.7) 0.2 x10^3/uL (0.0-0.7) Basophils # (Auto) 0.1 x10^3/uL (0.0-0.2) 0.0 x10^3/uL (0.0-0.2) Urine Collection Type Unknown Urine Color Yellow Urine Clarity Clear Urine pH 7.0 (<5.0-8.0) Urine Specific [place] 1.020 (1.000-1.030) Urine Protein Negative mg/dL (NEG-TRACE) Urine Glucose (UA) Negative mg/dL (NEG) Urine Ketones (Stick) Negative mg/dL (NEG) Urine Blood Negative (NEG) Urine Nitrite Negative (NEG) Urine Bilirubin Negative (NEG) Urine Urobilinogen Dipstick 0.2 mg/dL (0.2 mg/dL) Urine Leukocyte Esterase Negative (NEG) Urine RBC 0 /HPF (0-2) Urine WBC 0 /HPF (0-4) Urine Squamous Epithelial Cells Occ /LPF Urine Bacteria Few /HPF (0-FEW) Urine Mucus Slight /LPF Sodium Level 136 mmol/L (136-145) 136 mmol/L (136-145) Potassium Level 4.2 mmol/L (3.5-5.1) 3.8 mmol/L (3.5-5.1) Chloride Level 100 mmol/L (98-107) 100 mmol/L (98-107) Carbon Dioxide Level 27 mmol/L (21-32) 27 mmol/L (21-32) Anion Gap 9 (6-14) 9 (6-14) Blood Urea Nitrogen 5 mg/dL (7-20) 6 mg/dL (7-20) Creatinine 0.7 mg/dL (0.6-1.0) 0.6 mg/dL (0.6-1.0) Estimated GFR (Cockcroft-Gault) 92.7 110.7 BUN/Creatinine Ratio 7 (6-20) 10 (6-20) Glucose Level 177 mg/dL (70-99) 94 mg/dL (70-99) Calcium Level 8.8 mg/dL (8.5-10.1) 8.8 mg/dL (8.5-10.1) Magnesium Level 2.0 mg/dL (1.8-2.4) Total Bilirubin 0.3 mg/dL (0.2-1.0) 0.3 mg/dL (0.2-1.0) Aspartate Amino Transf (AST/SGOT) 23 U/L (15-37) 17 U/L (15-37) Alanine Aminotransferase (ALT/SGPT) 43 U/L (14-59) 37 U/L (14-59) Alkaline Phosphatase 92 U/L (46-116) 88 U/L (46-116) Total Protein 8.4 g/dL (6.4-8.2) 7.9 g/dL (6.4-8.2) Albumin 3.4 g/dL (3.4-5.0) 3.2 g/dL (3.4-5.0) Albumin/Globulin Ratio 0.7 (1.0-1.7) 0.7 (1.0-1.7) Salicylates Level 0.6 mg/dL (2.8-20.0) Salicylate Last Dose Date Salicylate Last Dose Time Urine Opiates Screen Neg (NEG) Urine Methadone Screen Neg (NEG) Acetaminophen Level < 2 mcg/ml (10-30) Acetaminophen Last Dose Date Acetaminophen Last Dose Time Urine Barbiturates Neg (NEG) Valproic Acid (Depakene) Level 34 mcg/mL (50-100) Valproic Acid Last Dose Date 05/02/21 Valproic Acid Last Dose Time 2100 Urine Phencyclidine Screen Neg (NEG) Urine Amphetamine/Methamphetamine Neg (NEG) Urine Benzodiazepines Screen Neg (NEG) Urine Cocaine Screen Neg (NEG) Urine Cannabinoids Screen Neg (NEG) Ethyl Alcohol Level < 10 mg/dL (0-10) Urine Ethyl Alcohol Neg (NEG) SARS-CoV-2 Antigen (Rapid) Negative (NEGATIVE) Brief Hospital Course Ms. Weiss is a 41 old female, admit from ER after taking most of her lexapro and 4-6 Depakote in a suicide attempt after a fight with her mom and her kids refusing to stay with her. She had a couple drinks, then had obsessive thoughts, then spiraled Better here after 24 horus, PAT team made psych follow up, she felt well Discharge Information Condition at Discharge: Improved Follow Up: Weeks Disposition/Orders: D/C to Home Scheduled Cranberry Extract/Vit C (Azo Cranberry Softgel) 1 Each Capsule, 1 CAP PO DAILY for prophylactic for 30 Days, #30 Ref 0 (Reported) Entered as Reported by: GEOVANNA RAMOS on 05/03/212339 Last Taken: Unknown Dose on 05/03/21899 Last Action: New Order on 05/03/212339 by GEOVANNA HER Divalproex Sodium (Divalproex Sodium Er) 500 Mg Tab.er.24h, 1 TAB PO QHS for depression/PTSD, #60 Ref 1 (Reported) Entered as Reported by: GEOVANNA RAMOS on 05/03/212339 Last Taken: Unknown Dose on 05/02/21 2100 Last Action: New Order on 05/03/212339 by GEOVANNA HER Esomeprazole Magnesium (Nexium Capsule) 20 Mg Capsule.dr, 1 CAP PO DAILY for GERD, #30 Ref 2 (Reported) Entered as Reported by: GEOVANNA RAMOS on 05/03/212339 Last Taken: Unknown Dose on 05/03/21899 Last Action: Converted on 05/04/21828 by TERRY SHAHID Fexofenadine/Pseudoephedrine (Debo-D 24 Hour Tablet) 1 Each Tab.er.24h, 1 TAB PO DAILY for allergies for 30 Days, #30 Ref 0 (Reported) Entered as Reported by: GEOVANNA RAMOS on 05/03/212339 Last Taken: Unknown Dose on 05/03/21899 Last Action: New Order on 05/03/212339 by GEOVANNA HER Multivitamin (One-A-Day Essential) 1 Each Tablet, 1 TAB PO DAILY for supplement for 30 Days, #30 Ref 0 (Reported) Entered as Reported by: GEOVANNA HER on 05/03/212339 Last Taken: Unknown Dose on 05/03/21899 Last Action: New Order on 05/03/212339 by GEOVANNA HER Scheduled PRN Calcium Carbonate (Calcium Carbonate) 650 Mg Tablet, 750 MG PO PRN QID PRN for HEARTBURN / GAS, (Reported) Entered as Reported by: GEOVANNA HER on 05/03/212339 Last Taken: Unknown Dose on Unknown Date & Time Last Action: Converted on 05/04/21828 by TERRY SHAHID Escitalopram Oxalate (Escitalopram Oxalate) 10 Mg Tablet, 15 MG PO DAILY PRN for Depression, #30 Ref 0 (Reported) Entered as Reported by: GEOVANNA HER on 05/03/212339 Last Taken: Unknown Dose on 05/03/21899 Last Action: New Order on 05/03/212339 by GEOVANNA HER Patient Instructions Patient Instructions pt seen face to face at [facility] Justicifation of Admission Dx: Justifications for Admission: Justification of Admission Dx: No (obs) TERRY SHAHID MD May 05, 2021 12:20
== END 2021-05-05 10:30 | disposition home or self-care (01) | DRG 918 ==
LOC: ER 16:45 → 5 NORTH 19:44
PROVIDERS: ADMIT Internal Medicine; ATTEND Internal Medicine
DX: T50.902A Poisoning by unspecified drugs, medicaments and biological substances, intentional self-harm, initial encounter (principal); R45.851 Suicidal ideations; Z68.41 Body mass index [BMI] 40.0-44.9, adult; F31.9 Bipolar disorder, unspecified; E11.9 Type 2 diabetes mellitus without complications; E66.9 Obesity, unspecified; F17.210 Nicotine dependence, cigarettes, uncomplicated; F20.9 Schizophrenia, unspecified; F43.10 Post-traumatic stress disorder, unspecified; I10 Essential (primary) hypertension; Y04.0XXA Assault by unarmed brawl or fight, initial encounter; Z90.711 Acquired absence of uterus with remaining cervical stump; Y92.89 Other specified places as the place of occurrence of the external cause; Z20.822 Contact with and (suspected) exposure to COVID-19
CPT/HCPCS: 36415; 80053; 80164; 80307; 80329; 81001; 83735; 85025; 87426; 93005; G0480; U0003; 99285-25; G0378